=== PATIENT | female | born 2000 | race African-American/Black ===

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

== ENCOUNTER 2022-10-29 10:37 | Emergency (ER) | payer MEDICAID ==
[~2022-10-29] VITALS: Ht 160 cm; Wt 97.7 kg
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
[2022-10-29 12:55] VITALS: BP 114/74
== END 2022-10-29 12:56 | disposition home or self-care (01) ==
LOC: ER 10:37
DX: S82.002A Unspecified fracture of left patella, initial encounter for closed fracture (principal); F12.90 Cannabis use, unspecified, uncomplicated; Z59.00 Homelessness unspecified; X58.XXXA Exposure to other specified factors, initial encounter; Y93.89 Activity, other specified; Y92.89 Other specified places as the place of occurrence of the external cause; Y99.8 Other external cause status
CPT/HCPCS: 29505; 73564; 99284

== ENCOUNTER 2025-05-02 17:01 | Emergency (ER) | payer MEDICAID ==
[~2025-05-02] VITALS: Ht 157.5 cm; Wt 106.8 kg
--- NOTE | 2025-05-02 19:15 | Physician Documentation ---
History of Present Illness ~ Chief Complaint: Sore Throat Stated Complaint: COLD SYMPTOMS Time Seen by MD: 21:08 Primary Medical Doctor: [facility] This is a 24-year-old female who presents with two days of sore throat, patient reports feeling a lump in my throat. Patient reports cough and subjective fever. Medication Reconciliation Allergies: Coded Allergies: No Known Allergies (Unverified , 10/08/16) Scheduled Famotidine (Pepcid), 1 TABLET PO DAILY Scheduled PRN Sucralfate (Carafate), 10 ML PO TID PRN for pain Past Medical History Past Medical History: No Pertinent History Past Surgical History: no surgical history Alcohol Use: Rarely Drug Use: marijuana, other Lives In: Homeless Occupation: student Review of Systems ROS As stated above in the HPI, otherwise all systems are reviewed and negative. Physical Exam Vital Signs: Temperature: 99.7, Heart Rate: 90, Respiratory Rate: 16, BP: 125/89, Pulse Oximetry: 97, Weight: 106.820 Oxygen Flow Rate: 0 Physical Exam VITALS: Reviewed and as above. GENERAL: Alert, nontoxic appearing, no apparent distress. HEENT: Pharynx mildly erythematous, no tonsillar swelling, no exudates or patches, uvula midline, no drooling, minimal anterior cervical lymphadenopathy RESPIRATORY: No increased work of breathing, no respiratory distress, speaking in full clear sentences CHEST: CV: BACK: GI: MUSCULOSKELETAL: SKIN: NEURO: PSYCH: Progress Results/Orders Results/Orders Orders - DAVID GORDON Covid19 Binax Poc Result Entry (05/02/25 22:08) Completed Orders - DAVID GORDON Influenza Type A&B Rapid Test (05/02/25 22:08) Strep A Rapid (05/02/25 22:08) Vital Signs 05/02/25 05/02/25 17:16 21:05 Temp 99.7 Pulse 90 Resp 16 16 B/P (MAP) 125/89 Pulse Ox 97 O2 Flow Rate 0 Laboratory Tests Test 05/02/25 22:21 Influenza Type A Antigen Negative Influenza Type B Antigen Negative SARS-CoV-2 Antigen (Rapid) Negative Group A Streptococcus Rapid Positive H Medical Decision Making Additional information obtaine: other Findings Medical Decision Making Number of Diagnoses/Management Options: Moderate complexity. The patient pre sented with difficulty swallowing, voice changes, and sore throat. Differential diagnosis included viral pharyngitis, group A streptococcal pharyngitis, peritonsillar abscess, and epiglottitis. Clinical evaluation revealed minimal posterior oropharyngeal erythema without exudate. Given the constellation of symptoms including dysphagia and voice changes, imaging was obtained to evaluate for airway compromise or deep space infection. Amount and Complexity of Data: Moderate complexity. Rapid streptococcal antigen test was performed and returned positive, confirming group A streptococcal pharyngitis. X-ray imaging of the airway and throat was reviewed and demonstrated no evidence of airway narrowing, retropharyngeal abscess, or other concerning findings. The positive rapid antigen test establishes the diagnosis without need for throat culture confirmation. Risk of Complications: Moderate risk. While the patient's physical examination findings are relatively mild with minimal erythema and no exudate, the presence of dysphagia and voice changes warranted evaluation for potential complications such as peritonsillar abscess or airway compromise. The negative imaging findings are reassuring. Untreated group A streptococcal pharyngitis carries risk of suppurative complications including peritonsillar abscess and nonsuppurative sequelae including acute rheumatic fever. Treatment Plan: The patient will be treated with amoxicillin-clavulanate 875 mg orally twice daily for 10 days. While penicillin or amoxicillin alone are recommended as first-line therapy for group A streptococcal pharyngitis, the broader spectrum coverage of amoxicillin-clavulanate is reasonable given the patient's presenting symptoms of dysphagia and voice changes, which raised initial concern for possible peritonsillar infection. The 10-day duration is consistent with guideline recommendations to eradicate group A Streptococcus from the pharynx. The first dose will be administered in the emergency department to ensure treatment initiation. Symptomatic management with analgesics such as acetaminophen or nonsteroidal anti-inflammatory drugs was discussed. Disposition and Follow-up: The patient is discharged home in stable condition with instructions to follow up with her primary care provider. She was counseled to return to the emergency department if she develops worsening difficulty swallowing, inability to handle secretions, difficulty breathing, high fever, or symptoms that do not improve within 5 days of starting antibiotics. Ear Diff. Dx: Considerations: Include: Abrasion, Cerumen impaction, Foreign body, Otitis externa, Barotrauma, Otitis media, Perforation, Referred pain- dental, Referred pain-pharyngitis, Referred pain-sinusitis, Referred pain-TMJ syn., Tympanic Membrane Injury, Other Eye Diff. Dx: Considerations: Include: Chalazoin, Conjuctivits-allergic, Conjuctivitis-bacterial, Conjuctivits-chlamydial, Conjuctivitis-viral, Corneal abrasion, Corneal laceration, Corneal ulceration, Foreign body-conjuctiva, Foreign body-corneal, Foreign body-intraocular, Foreign body-lid, Glaucoma, Globe rupture, Hordeolum, Iritis, Orbital cellulitis, Periobital cellulitis, Retinal artery occulsion, Retinal vein occlusion, Rust ring, Subconjunctival hem, Ultraviolet keratitis, Uveitis, Vitreous hemorrhage, Other Nose Diff. Dx: Considerations: Include: Abrasion, Anterior nasal bleed, Avulsion, Contusion, Coagulopathy, Fracture-nasal bone, Fracture-septum, Hypertension, Laceration, Other, Posterior nasal bleed, Retained foreign body, Septal hematoma Tooth Diff. Dx: Considerations: Include: Alveolar fracture, Aveolar osteitis, ANUG, Facial cellulitis, Periapical abscess, Periodontal abscess, Post- extraction bleeding, Pulpitis, Trigeminal neuralgia, Tooth-avulsion, Tooth- eruption, Tooth-fracture, Tooth-subluxation, Other Throat Diff Dx: Considerations: Include: AIDS, Epiglottitis, Esophageal candidiasis, Hand foot mouth disease, Herpangina, Herpetic stomatitis, Herpes simplex, Infection mononucleosis, Immunodeficiency, Aquiles's angina, Peritonsillar abscess, Peritonsillar cellulitis, Pharyngitis-diphtheria, Pharyngitis-strepococcal, Pharyngitis-viral, Thrush, URI, Other Departure Disposition: 01 HOME / SELF CARE / HOMELESS Impression: Primary Impression: Strep pharyngitis Additional Impressions: Sore throat Irritation of pharynx Condition: Stable Discharge Instructions: Strep Throat, Adult Additional Instructions: Your Diagnosis You have been diagnosed with strep throat (streptococcal pharyngitis), a bacterial infection of the throat caused by group A Streptococcus bacteria. Your test confirmed this infection, and you will need to take antibiotics to treat it. Your Medications You have been prescribed amoxicillin-clavulanate (Augmentin) 875 mg to take by mouth twice daily for 10 days. Take one tablet in the morning and one tablet in the evening Take all 10 days of antibiotics, even if you start feeling better after a few days It is very important to complete the full course to prevent complications and ensure the infection is completely cleared You received your first dose in the emergency department today Managing Your Symptoms Your symptoms should start improving within 24 to 48 hours after starting the antibiotic. Even without treatment, strep throat symptoms often improve within a few days, but antibiotics help prevent complications. To help with pain and fever: Take ibuprofen (Advil, Motrin) or acetaminophen (Tylenol) as directed on the package Ibuprofen may work better than acetaminophen for throat pain Use throat lozenges every 2 hours if needed for additional relief Drink plenty of fluids and get rest Referrals: NO PRIMARY CARE PROVIDER (PCP) Prescriptions Amox Tr/Potassium Clavulanate (Augmentin 875-125 Tablet) 1 Each Tablet 1 TAB PO Q12H for 10 Days, #20 TAB Prov: DAVID GORDON 05/03/25 Education Educated: Patient Educated regarding: diagnosis, treatment, need for follow up Signature Scribe Signature: A Attestation: Scribed for David Gordon by MATTHIAS Camilo . 05/03/25 00:19 FLACO GONCALVES May 02, 2025 19:15 DAVID GORDON May 03, 2025 00:19
--- NOTE | 2025-05-02 20:09 | RADIOLOGY REPORT ---
Procedure: DI NECK FOR SOFT TISSUES Exam Date: 05/02/2025 07:21 PM History: Sore throat Comparison Study: None Technique: Soft Tissue Neck: AP and lateral views. Findings: Soft tissue thickness is normal. Normal appearance of the cervical airway. No acute osseous abnormality. Unremarkable lung apices. Impression: 1. Unremarkable radiographic appearance of the neck soft tissues.
[2025-05-02 22:44] LABS: INFLUENZA TYPE A ANTIGEN RAPID NEGATIVE (Negative); INFLUENZA TYPE B ANTIGEN RAPID NEGATIVE (Negative)
[2025-05-02 22:45] LABS: STREP A SCREEN POSITIVE (Neg)
[2025-05-03] MEDS ORDERED: AMOX-117 PO (00:16)
[2025-05-03] MEDS: amox tr/potassium clavulanate 875/125mg TAB PO ONE (00:19)
[2025-05-03 00:23] VITALS: BP 124/86; PULSE 96; RESP 20; TEMP 98.6; O2SAT 99
== END 2025-05-03 00:25 | disposition home or self-care (01) ==
LOC: ER 17:01
DX: J02.0 Streptococcal pharyngitis (principal); R05.9 Cough, unspecified; Z20.822 Contact with and (suspected) exposure to COVID-19
CPT/HCPCS: 36415; 70360; 87804; 87811; 87880; 99284